=== PATIENT | female | born 1955 | race Hispanic/Latino ===

== ENCOUNTER 2016-06-12 01:40 | Emergency (ER) | payer OTHER ==
[~2016-06-12] VITALS: Ht 152.4 cm; Wt 97.5 kg
[~2016-06-12 01:40] MED LIST: ADULT LOW DOSE81 MG PO; ADVAIR 500-501 EACH INH; ADVAIR DISKUS1 UNIT INH; ALBUTEROL SULFAT3 M1 INH; ALBUTEROL1.25 MG/1 NEB; ALBUTEROL1.25 MG/3 INH; AMOX-CLAV 875-1 EACH PO; AMOXIL 875 MG875 MG PO; ARISTOCORT OINT15 GM TOP; ASPIRIN EC81 M1 PO; AUGMENTIN 875875 MG PO; AZITHROMYCIN250 M1 PO; AZITHROMYCIN500 MG PO; BENICAR40 M1 PO; BENTYL20 MG PO; BYSTOLIC5 M1 PO; CLOBETASOL PROP TOP; CLONAZEPAM0.5 M2 PO; CLONAZEPAM0.5 MG PO; ESCITALOPRAM OX10 MG PO; ESCITALOPRAM10 MG PO; FENOFIBRIC ACI135 MG PO; FIORICET 325 MG1 TAB PO; FLEXERIL10 MG PO; GABAPENTIN100 MG PO; GUAIFENESIN-COD10 ML PO; HYDRALAZINE HCL10 M1 PO; LANTUS SOL100 UNIT/1 SC; LANTUS SOLOS100 U/ML SC; LEVEMIR100 U/ML SC; LEVOTHYROXIN0.075 M1 PO; LEVOXYL75 MCG PO; LOSARTAN POTAS100 M1 PO; LOSARTAN POTAS100 MG PO; LOSARTAN POTASS50 MG PO; METFORMIN ER500 MG PO; MONTELUKAST SOD10 M1 PO; MONTELUKAST SOD10 MG PO; NEURONTIN100 M1 PO; NEURONTIN100 MG PO; NORVASC 5MG TAB5 MG PO; NORVASC10 M1 PO; NORVASC5 M1 PO; NOVOLOG 10300 UNITS/ SC; NOVOLOG100 U/ML SC; NOVOLOG100 UNIT/2 SC; NYSTATIN100000 U/2 TOP; PERCOCET 325 MG1 TA2 PO; PERCOCET 325 MG1 TA3 PO; PERCOCET 5-3251 EACH PO; PERCOCET 7.5-31 EACH PO; PREDNISONE 10MG10 M1 PO; PREDNISONE 20MG20 MG PO; PROAIR HFA0.09 MG/Ac INH; PROAIR HFA8.5 GM INH; PROVENTIL HFA6.7 GM INH; RISPERIDONE1 M1 PO; RISPERIDONE1 MG PO; SPIRIVA18 MCG INH; TESSALON PERLE100 MG PO; TRAMADOL HCL50 MG PO; TRAZODONE HCL50 M1; TRAZODONE HCL50 MG PO; TRAZODONE50 MG PO; VIBRAMYCIN 100100 MG PO; VICODIN10-300 PO; VITAMIN D250000 UNIT PO; VITAMIN D50000 IU PO; ZITHROMAX250 MG PO; ZOCOR20 M1 PO; ZOCOR20 MG PO; ZOFRAN ODT4 M1 SL; ZOFRAN ODT4 MG PO; ZOFRAN ODT4 MG SL
--- NOTE | 2016-06-12 01:57 | ED GENERAL ADULT ---
History of Present Illness General Chief Complaint: General Adult Stated Complaint: "PER HIGH BP 198/95, RT KNEE PAIN" Source: patient, old records, Exam Limitations: no limitations Vital Signs & Intake/Output Vital Signs & Intake/Output Vital Signs Date Time Temp Pulse Resp B/P Pulse O2 O2 Flow FiO2 Ox Delivery Rate 06/12 528 96.8 61 18 137/72 95 Room Air / 0421 96.6 71 18 179/87 95 Room Air 06/12 0339 96.6 72 18 185/88 06/12 0330 96.6 68 18 185/88 / 0330 96.6 72 18 224/112 / 0325 185/88 / 0312 72 18 224/112 97 Room Air 06/12 0309 96.6 71 18 224/112 97 Room Air 06/12 0151 97.8 122 20 229/98 94 Room Air Allergies Coded Allergies: pineapple (Intermediate, ITCHY THROAT 11/25/15) ibuprofen (Mild, GI UPSET 11/25/15) Reconcile Medications Albuterol Sulfate (Proair Hfa) 8.5 GM HFA.AER.AD 2 PUF INH PRN ASTHMA ( Reported) Albuterol Sulfate 1.25 MG/3 ML VIAL.NEB 1 Vial NEB Q4 PRN WHEEZING (Reported) Albuterol Sulfate (Proventil Hfa) 90 MCG HFA.AER.AD 2 PUF INH Q4 BRONCHITIS Amlodipine Besylate (Norvasc) 10 MG TABLET 1 TAB PO DAILY HIGH BLOOD PRESSURE Aspirin (Adult Low Dose Aspirin EC) 81 MG TABLET.DR 1 TAB PO DAILY HEART HEALTH (Reported) Aspirin (Ecotrin*) 81 MG TABLET.DR 1 TAB PO DAILY CARDIAC (Reported) Azithromycin 250 MG TABLET 1 DP PO AD bronchitis 2 the first day followed by 1 for days 2-5 Clonazepam 0.5 MG TABLET 3 TAB PO QHS ANXIETY (Reported) Clonazepam 0.5 MG TABLET 1 TAB PO QAM ANXIETY (Reported) Ergocalciferol (Vitamin D2) (Vitamin D2) 50,000 UNIT CAPSULE 1 CAP PO QMON SUPPLEMENT (Reported) Escitalopram Oxalate (Unknown Strength) TABLET 10 MG PO DAILY ANXIETY ( Reported) Fluticasone/Salmeterol (Advair 500-50 Diskus) 1 EACH BLST.W.DEV 1 PUF INH BID ASTHMA (Reported) Gabapentin (Neurontin) 100 MG CAPSULE 1 CAP PO DAILY PAIN (Reported) Hydralazine HCl 10 MG TABLET 1 TAB PO BID htn Insulin Aspart (Novolog) 100 UNIT/1 ML VIAL DIABETES (Reported) Insulin Glargine,Hum.rec.anlog (Lantus Solostar) 100 UNIT/1 ML INSULN.PEN 18 UNIT SC BID DIABETES (Reported) Levothyroxine Sodium (Levoxyl) 75 MCG TABLET 1 TAB PO DAILY THYROID (Reported ) Losartan Potassium 100 MG TABLET 1 TAB PO DAILY HYPERTENSION (Reported) Montelukast Sodium 10 MG TABLET 1 TAB PO QPM ASTHMA (Reported) Nebivolol HCl (Bystolic) 5 MG TABLET 1 TAB PO DAILY BP (Reported) Olmesartan Medoxomil (Benicar) 40 MG TABLET 1 TAB PO DAILY BP (Reported) Ondansetron (Zofran Odt) 4 MG TAB.RAPDIS 1 TAB SL TID PRN nausea Oxycodone HCl/Acetaminophen (Percocet 7.5-325 MG Tablet) 1 EACH TABLET 1 TAB PO Q6H PAIN (Reported) Oxycodone HCl/Acetaminophen (Percocet 5-325 MG Tablet) 1 EACH TABLET 1 TAB PO TID PRN HEADACHE Risperidone 1 MG TABLET 1 TAB PO QPM SLEEP (Reported) Robitussin AC (Guaifenesin-Codeine Syrup) 200 MG-20 MG/10 ML LIQUID 5-10 ML PO Q6P PRN COUGH Simvastatin (Zocor*) 20 MG TABLET 1 TAB PO DAILY CHOLESTEROL (Reported) Tiotropium Mcalister (Spiriva) 18 MCG CAP.W.DEV 1 CAP INH DAILY ASTHMA ( Reported) Tiotropium Mcalister (Spiriva) 18 MCG CAP.W.DEV 1 CAP INH DAILY PULM. (Reported ) Trazodone HCl (Unknown Strength) TABLET (Unknown Dose) UNKNOWN (Reported) Triage Note: PRESENTS TO ED FOR EVALUATION OF HER BP. SHE REPORTS TO HAVE BEEN NOTICING HER BP INCREASING IN THE PAST WEEK. SHE ALSO REPORTS HEADACHES AND CHEST DISCOMFORT THAT BEGAN THIS EVENING. REPORTS NAUSEA, NO VOMITING. Triage Nurses Notes Reviewed? yes HPI: Patient presents for evaluation of chest pain headache and nausea that began today. Patient states that her blood pressure has been running high for about a week now. She saw her direct casting operator last week and was apparently no issues at that time and no adjustments to blood pressure medications. Currently the patient is describing a burning substernal chest pain as a 7 out of 10 in intensity. In addition to the above the patient is also complaining of right knee pain and has had to have her knee tapped in the past. Past History Travel History Traveled to [place] past 21 day No Medical History Any Pertinent Medical History? 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 No Review of Systems Review of Systems Constitutional: Reports: no symptoms. EENTM: Reports: no symptoms. Respiratory: Reports: no symptoms. Cardiovascular: Reports: chest pain. GI: Reports: no symptoms. Genitourinary: Reports: no symptoms. Musculoskeletal: Reports: joint pain. Skin: Reports: no symptoms. Neurological/Psychological: Reports: headache. Hematologic/Endocrine: Reports: no symptoms. Immunologic/Allergic: Reports: no symptoms. All Other Systems: Reviewed and Negative Physical Exam Physical Exam General Appearance: see below Comments: Gen.: Well-nourished, well-developed, no acute respiratory distress. Overweight. Head: Normocephalic, atraumatic. Eyes: Normal inspection bilaterally, PERRLA, EOMI Ears: Normal inspection bilaterally Nose: Normal inspection Throat/mouth : Moist mucosa Neck: Supple, full range of motion, no goiter Heart: Regular rate and rhythm, no murmurs rubs or gallops Lungs: Clear to auscultation bilaterally with normal air entry Chest: Nontender Back: Normal range of motion Abdomen: Soft, nontender, nondistended, normal bowel sounds Extremities: Decreased range of motion of the right knee secondary to an effusion, equal radial pulses, no cyanosis clubbing or edema Neurologic: Cranial nerves grossly intact, speech is clear Skin: warm and dry Psychiatric: Calm, cooperative, no apparent delusions or hallucinations Core Measures ACS in differential dx? No CVA/TIA Diagnosis: No Severe Sepsis Present: No Septic Shock Present: No Progress Differential Diagnoses I considered the following diagnoses in my evaluation of the patient: NC, angina , aortic dissection/aneurysm, dyspepsia, acid reflux, endorgan damage Plan of Care: Orders Procedure Date/time Status TROPONIN LEVEL 06/12 552 Complete EKG 06/12 552 Active Telemetry/Hotel Service Supervisor 06/13 155 Active TROPONIN LEVEL 06/13 155 Complete CBC WITHOUT DIFFERENTIAL 06/13 155 Complete BASIC METABOLIC PANEL 06/13 155 Complete EKG 06/12 154 Active Laboratory Tests 06/12/16 0602: Troponin I < 0.01 06/12/16 0207: Anion Gap 8, Estimated GFR > 60, BUN/Creatinine Ratio 25.6 H, Glucose 379 H, Calcium 9.1, Troponin I < 0.01, CBC w Diff NO MAN DIFF REQ, RBC 4.45, MCV 90.9, MCH 29.8, RDW 14.1, MPV 7.6, Gran % 74.2, Lymphocytes % 17.8 L, Monocytes % 5.8 , Eosinophils % 1.6, Basophils % 0.6, Absolute Granulocytes 11.5 H, Absolute Lymphocytes 2.8, Absolute Monocytes 0.9 H, Absolute Eosinophils 0.2, Absolute Basophils 0.1, PUBS MCHC 32.7 L Diagnostic Imaging: Discussed w/RAD: CT Scan. Radiology Impression: PATIENT: AFTAB STEIN I PRESENT AGE: 61 PATIENT ACCOUNT NO: [id number] : 56 LOCATION: [facility] ORDERING PHYSICIAN: HANNAH RIVAS MD SERVICE DATE: 06/12/16 EXAM TYPE: CAT - CTA CHEST-AORTIC DISSECTION EXAMINATION: CT ANGIOGRAM CHEST, aortic study CLINICAL INFORMATION: Chest pain. Burning. Severe hypertension COMPARISON: Chest x-ray 06/12/2016 TECHNIQUE: Noncontrast CT was performed through the chest. This was followed by the administration of 95 mL Optiray [address] of the chest was then performed. Coronal and sagittal reformatted images were performed at CT scanner. No post processing 3-D images. DLP: 1235.32 mGy-cm. FINDINGS: VASCULAR: There is no aortic dissection or aneurysm. There is of normal caliber without vascular wall calcifications. There is a normal three- vessel aortic arch. Pulmonary arteries are well-opacified with no evidence of pulmonary embolism of the central pulmonary vessels. MEDIASTINUM: No mediastinal mass. No significant lymphadenopathy. There is no pericardial effusion. LUNGS: Emphysematous lucency of lungs. No acute infiltrate. Central bronchial airways are open. No bronchiectasis. FLUID: There is no pericardial effusion. There is no pleural effusion. AXILLA: No significant lymphadenopathy. UPPER ABDOMEN: Adrenal glands normal. Visualized portions of liver and spleen unremarkable. SKELETAL: Multilevel degenerative disc disease of the spine disc height narrowing and endplate spurs of the vertebrae. IMPRESSION: 1. No acute abnormality. Normal CT of the aorta. 2. Emphysematous changes of lungs. DICTATED BY: GALA RODRIGUES MD DATE/TIME DICTATED:06/12/16409 CIVIL ENGINEERING ASSISTANT:BROWNING DATE/TIME TRANSCRIBED:06/12/16409 CONFIDENTIAL, DO NOT COPY WITHOUT APPROPRIATE AUTHORIZATION. <Electronically signed in Other Vendor System> SIGNED BY: GALA RODRIGUES MD 06/12/16419, PATIENT: AFTAB STEIN I PRESENT AGE: 61 PATIENT ACCOUNT NO: [id number] : 56 LOCATION: [facility] ORDERING PHYSICIAN: HANNAH RIVAS MD SERVICE DATE: 06/12/16 EXAM TYPE: CAT - CT HEAD WO IV CONTRAST EXAMINATION: CT HEAD WITHOUT CONTRAST CLINICAL INFORMATION: High blood pressure. Headache. COMPARISON: CT head 2013 TECHNIQUE: Contiguous axial imaging was performed from the skull base to vertex without intravenous administration of contrast. DLP: 600.71 mGy-cm FINDINGS: There is no evidence of acute intracranial hemorrhage or territorial infarction. No abnormal mass effect or midline shift is seen. Roy to white matter differentiation is well preserved. No extra-axial fluid collections are identified. There is atrophy with prominence of the ventricles and the sulci and hypodensity of the periventricular white matter due to chronic small vessel ischemic disease. . The osseous structures and soft tissues are normal. The mastoid air cells and visualized portions of the paranasal sinuses are well aerated. IMPRESSION: No acute intracranial pathology. DICTATED BY: GALA RODRIGUES MD DATE/TIME DICTATED:06/12/16313 CIVIL ENGINEERING ASSISTANT:RAD.BROWNING DATE/TIME TRANSCRIBED:06/12/16313 CONFIDENTIAL, DO NOT COPY WITHOUT APPROPRIATE AUTHORIZATION. <Electronically signed in Other Vendor System> SIGNED BY: GALA RODRIGUES MD 06/12/16319 CXR Impression: PATIENT: AFTAB STEIN I PRESENT AGE: 61 PATIENT ACCOUNT NO: [id number] : 56 LOCATION: [facility] ORDERING PHYSICIAN: HANNAH RIVAS MD SERVICE DATE: 06/12/16 EXAM TYPE: RAD - XRY-CHEST XRAY, PA AND LATERAL EXAMINATION: XR CHEST CLINICAL INFORMATION: Chest pain. COMPARISON: Chest x-ray 02/10/2016 TECHNIQUE: 2 views of the chest were obtained. FINDINGS: Lungs are clear. No pulmonary vascular congestion. No infiltrate or pleural effusion. The heart size is mildly enlarged. The cardiac and mediastinal contours are normal. There are multilevel degenerative changes of dorsal spine. IMPRESSION: No acute abnormality the chest. DICTATED BY: GALA RODRIGUES MD DATE/TIME DICTATED:06/12/16315 CIVIL ENGINEERING ASSISTANT:CLEO DATE/ TIME TRANSCRIBED:06/12/16315 CONFIDENTIAL, DO NOT COPY WITHOUT APPROPRIATE AUTHORIZATION. <Electronically signed in Other Vendor System> SIGNED BY: GALA RODRIGUES MD 06/12/16321 Initial ED EKG: NSR, rate (75), nonspecific ST T wave chg Prior EKG: unchanged Comments: 06/12/2016 4:24:18 AM patient continues to complain of chest pain and headache pain despite an improvement in her blood pressure. I have reviewed the patient' s prior emergency department visit vital signs and she often runs a very high blood pressure. Fortunately there are no diagnostic EKG changes, signs of congestive heart failure or hypertensive bleed and CTA of the chest reveals no aortic disease. Morphine ordered for pain. 06/12/2016 6:28:02 AM patient is now pain-free and appears comfortable. Patient's repeat EKG shows flattening of the T waves in the lateral leads but interestingly a return of the patient's T wave in aVL. Patient's case discussed with Dr. Serenity Kellogg covering for Dr. Rose who feels that so long as the patient does not elevated troponin level on repeat testing, the EKG changes are nonspecific. Departure Departure Disposition: HOME OR SELF CARE Condition: Stable Clinical Impression Primary Impression: Hypertension Qualifiers: Hypertension type: essential hypertension Qualified Code: I10 - Essential (primary) hypertension Secondary Impressions: Headache Qualifiers: Headache type: unspecified Headache chronicity pattern: acute headache Intractability: not intractable Qualified Code: R51 - Headache Right knee pain Qualifiers: Chronicity: acute Qualified Code: M25.561 - Pain in right knee Referrals: BARBARA PEOPLES APRN (PCP/Family) Additional Instructions: Continue your current blood pressure medications. Follow-up with Dr. Rose tomorrow for reevaluation of your blood pressure and adjustment of your blood pressure medications. Avoid caffeine and salt. Notify your primary care doctor of this emergency department visit and treatment plan. Return if any concerns or sudden worsening. Departure Forms: Customer Survey General Discharge Information Critical Care Note Critical Care Note Critical Care Time: 30-74 min
[2016-06-12 02:12] LABS: ABSOLUTE BASOPHIL COUNT 0.1 /CUMM (0.0-0.2); ABSOLUTE EOSINOPHIL COUNT 0.2 /CUMM (0.0-0.7); ABSOLUTE GRANULOCYTE CT 11.5 /CUMM (1.4-6.5); ABSOLUTE LYMPH COUNT 2.8 /CUMM (1.2-3.4); ABSOLUTE MONOCYTE COUNT 0.9 /CUMM (0.10-0.60); BASOPHIL % 0.6 % (0.0-2.0); EOSINOPHIL % 1.6 % (0-5); GRANULOCYTE % 74.2 % (42.2-75.2); HEMATOCRIT 40.4 % (37-47); MEAN CORPUSCULAR HGB 29.8 PG (27.0-31.0); MEAN CORPUSCULAR HGB CONC 32.7 G/DL (33.0-37.0); MEAN CORPUSCULAR VOLUME 90.9 FL (81.0-99.0); MEAN PLATELET VOLUME 7.6 FL (7.4-10.4); PLATELET COUNT 360 /CUMM (130-400); RBC DISTRIBUTION WIDTH 14.1 % (11.5-14.5); RED BLOOD CELL CT 4.45 /CUMM (4.20-5.40); WHITE BLOOD CELL COUNT 15.5 /CUMM (4.8-10.8)
--- NOTE | 2016-06-12 03:20 | CT SCAN REPORT ---
EXAMINATION: CT HEAD WITHOUT CONTRAST CLINICAL INFORMATION: High blood pressure. Headache. COMPARISON: CT head 04/13/2013 TECHNIQUE: Contiguous axial imaging was performed from the skull base to vertex without intravenous administration of contrast. DLP: 600.71 mGy-cm FINDINGS: There is no evidence of acute intracranial hemorrhage or territorial infarction. No abnormal mass effect or midline shift is seen. Roy to white matter differentiation is well preserved. No extra-axial fluid collections are identified. There is atrophy with prominence of the ventricles and the sulci and hypodensity of the periventricular white matter due to chronic small vessel ischemic disease. . The osseous structures and soft tissues are normal. The mastoid air cells and visualized portions of the paranasal sinuses are well aerated. IMPRESSION: No acute intracranial pathology.
--- NOTE | 2016-06-12 03:22 | RADIOLOGY REPORT ---
EXAMINATION: XR CHEST CLINICAL INFORMATION: Chest pain. COMPARISON: Chest x-ray 02/10/2016 TECHNIQUE: 2 views of the chest were obtained. FINDINGS: Lungs are clear. No pulmonary vascular congestion. No infiltrate or pleural effusion. The heart size is mildly enlarged. The cardiac and mediastinal contours are normal. There are multilevel degenerative changes of dorsal spine. IMPRESSION: No acute abnormality the chest.
--- NOTE | 2016-06-12 04:20 | CT SCAN REPORT ---
EXAMINATION: CT ANGIOGRAM CHEST, aortic study CLINICAL INFORMATION: Chest pain. Burning. Severe hypertension COMPARISON: Chest x-ray 06/12/2016 TECHNIQUE: Noncontrast CT was performed through the chest. This was followed by the administration of 95 mL Optiray [address] of the chest was then performed. Coronal and sagittal reformatted images were performed at CT scanner. No post processing 3-D images. DLP: 1235.32 mGy-cm. FINDINGS: VASCULAR: There is no aortic dissection or aneurysm. There is of normal caliber without vascular wall calcifications. There is a normal three-vessel aortic arch. Pulmonary arteries are well-opacified with no evidence of pulmonary embolism of the central pulmonary vessels. MEDIASTINUM: No mediastinal mass. No significant lymphadenopathy. There is no pericardial effusion. LUNGS: Emphysematous lucency of lungs. No acute infiltrate. Central bronchial airways are open. No bronchiectasis. FLUID: There is no pericardial effusion. There is no pleural effusion. AXILLA: No significant lymphadenopathy. UPPER ABDOMEN: Adrenal glands normal. Visualized portions of liver and spleen unremarkable. SKELETAL: Multilevel degenerative disc disease of the spine disc height narrowing and endplate spurs of the vertebrae. IMPRESSION: 1. No acute abnormality. Normal CT of the aorta. 2. Emphysematous changes of lungs.
[2016-06-12 07:11] VITALS: BP 147/80
[2016-06-12] MEDS ORDERED: NORCO 5-325 TA1 EACH PO (07:16)
== END 2016-06-12 07:18 ==
LOC: ERH 01:40
PROVIDERS: Emergency Medicine
DX: I10 Essential (primary) hypertension (principal); R51 Headache; M25.561 Pain in right knee
CPT/HCPCS: 93005; 93010; 96374; 96375; 99291

== ENCOUNTER 2016-09-06 02:06 | Emergency (ER) | payer OTHER ==
[~2016-09-06] VITALS: Ht 152.4 cm; Wt 91.2 kg
[~2016-09-06 02:06] MED LIST changes: +NORCO 5-325 TA1 EACH PO
--- NOTE | 2016-09-06 03:36 | ED GENERAL ADULT ---
History of Present Illness General Chief Complaint: General Adult Stated Complaint: PER C/O HEPERTENSION Source: patient, family, old records Exam Limitations: no limitations Vital Signs & Intake/Output Vital Signs & Intake/Output Vital Signs Date Time Temp Pulse Resp B/P B/P Pulse O2 O2 Flow FiO2 Mean Ox Delivery Rate 09/06 0758 98.5 75 20 149/90 97 Room Air 09/06 0551 97.0 80 20 164/102 09/06 0523 97.0 80 20 164/102 98 Room Air 09/06 0421 96 Room Air 09/06 0402 97.1 87 20 204/110 09/06 0341 204/110 09/06 0312 97.1 87 20 185/93 95 Room Air Allergies Coded Allergies: pineapple (Intermediate, ITCHY THROAT 11/25/15) ibuprofen (Mild, GI UPSET 11/25/15) Reconcile Medications Albuterol Sulfate (Proair Hfa) 8.5 GM HFA.AER.AD 2 PUF INH PRN ASTHMA ( Reported) Albuterol Sulfate 1.25 MG/3 ML VIAL.NEB 1 Vial NEB Q4 PRN WHEEZING (Reported) Albuterol Sulfate (Proventil Hfa) 90 MCG HFA.AER.AD 2 PUF INH Q4 BRONCHITIS Amlodipine Besylate (Norvasc) 10 MG TABLET 1 TAB PO DAILY HIGH BLOOD PRESSURE Aspirin (Adult Low Dose Aspirin EC) 81 MG TABLET. 1 TAB PO DAILY HEART HEALTH (Reported) Aspirin (Ecotrin*) 81 MG TABLET.DR 1 TAB PO DAILY CARDIAC (Reported) Azithromycin 250 MG TABLET 1 DP PO AD bronchitis 2 the first day followed by 1 for days 2-5 Clonazepam 0.5 MG TABLET 3 TAB PO QHS ANXIETY (Reported) Clonazepam 0.5 MG TABLET 1 TAB PO QAM ANXIETY (Reported) Ergocalciferol (Vitamin D2) (Vitamin D2) 50,000 UNIT CAPSULE 1 CAP PO QMON SUPPLEMENT (Reported) Escitalopram Oxalate (Unknown Strength) TABLET 10 MG PO DAILY ANXIETY ( Reported) Fluticasone/Salmeterol (Advair 500-50 Diskus) 1 EACH BLST.W.DEV 1 PUF INH BID ASTHMA (Reported) Gabapentin (Neurontin) 100 MG CAPSULE 1 CAP PO DAILY PAIN (Reported) Hydralazine HCl 10 MG TABLET 1 TAB PO BID htn Hydrocodone/Acetaminophen ([place] 5-325 Tablet) 5 MG-325 MG TABLET 1-2 TAB PO Q6P PRN PAIN Insulin Aspart (Novolog) 100 UNIT/1 ML VIAL DIABETES (Reported) Insulin Glargine,Hum.rec.anlog (Lantus Solostar) 100 UNIT/1 ML INSULN.PEN 18 UNIT SC BID DIABETES (Reported) Levothyroxine Sodium (Levoxyl) 75 MCG TABLET 1 TAB PO DAILY THYROID (Reported ) Losartan Potassium 100 MG TABLET 1 TAB PO DAILY HYPERTENSION (Reported) Montelukast Sodium 10 MG TABLET 1 TAB PO QPM ASTHMA (Reported) Nebivolol HCl (Bystolic) 5 MG TABLET 1 TAB PO DAILY BP (Reported) Olmesartan Medoxomil (Benicar) 40 MG TABLET 1 TAB PO DAILY BP (Reported) Ondansetron (Zofran Odt) 4 MG TAB.RAPDIS 1 TAB SL TID PRN nausea Oxycodone HCl/Acetaminophen (Percocet 7.5-325 MG Tablet) 1 EACH TABLET 1 TAB PO Q6H PAIN (Reported) Oxycodone HCl/Acetaminophen (Percocet 5-325 MG Tablet) 1 EACH TABLET 1 TAB PO TID PRN HEADACHE Risperidone 1 MG TABLET 1 TAB PO QPM SLEEP (Reported) Robitussin AC (Guaifenesin-Codeine Syrup) 200 MG-20 MG/10 ML LIQUID 5-10 ML PO Q6P PRN COUGH Simvastatin (Zocor*) 20 MG TABLET 1 TAB PO DAILY CHOLESTEROL (Reported) Tiotropium [place] (Spiriva) 18 MCG CAP.W.DEV 1 CAP INH DAILY ASTHMA ( Reported) Tiotropium [place] (Spiriva) 18 MCG CAP.W.DEV 1 CAP INH DAILY PULM. (Reported ) Trazodone HCl (Unknown Strength) TABLET (Unknown Dose) UNKNOWN (Reported) Triage Note: pt to ed for elevated bp at home 197/92. pt c/o chest pain. evaluated by dr chin Triage Nurses Notes Reviewed? yes Onset: Abrupt Duration: hour(s): (FEW) Timing: recent history Injury Environment: home Severity: mild, moderate No Modifying Factors: none HPI: This is a 61-year-old female with history of hypertension who presents with her for chief complaint of elevated blood pressure at home this evening. She also reports headache, blurred vision, chest pain, abdominal pain, back pain. She is on clonidine, olmesartan and Coreg for her blood pressure. He reports she is compliant with her medications. (HELEN CHIN MD) Past History Travel History Traveled to [place] past 21 day No Medical History Any Pertinent Medical History? 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 No (HELEN CHIN MD) Review of Systems Review of Systems Constitutional: Denies: chills, fever. EENTM: Reports: blurred vision. Respiratory: Reports: cough, short of breath, sputum production. Cardiovascular: Reports: chest pain. GI: Reports: abdominal pain. Genitourinary: Reports: no symptoms. Musculoskeletal: Reports: back pain. Skin: Reports: no symptoms. Neurological/Psychological: Reports: headache. Hematologic/Endocrine: Denies: bruising, bleeding, polyuria, polydipsia. Immunologic/Allergic: Reports: no symptoms. All Other Systems: Reviewed and Negative (HELEN CHIN MD) Physical Exam Physical Exam General Appearance: well developed/nourished, alert, awake, anxious, mild distress, moderate distress, obese Head: atraumatic, normal appearance Eyes: Bilateral: normal appearance, PERRL, EOMI. Ears, Nose, Throat: normal pharynx, normal ENT inspection, abnormal Tympanic (R) Neck: normal inspection, supple, full range of motion Respiratory: normal breath sounds, chest non-tender, no respiratory distress Cardiovascular: regular rate/rhythm Peripheral Pulses: 2+ radial (R), 2+ radial (L) Gastrointestinal: normal bowel sounds, soft, non-tender Back: normal inspection, normal range of motion Neurologic/Psych: no motor/sensory deficits, awake, alert, oriented x 3 Skin: intact, normal color, warm/dry Core Measures ACS in differential dx? Yes CVA/TIA Diagnosis: No Severe Sepsis Present: No Septic Shock Present: No (SHERIF PULIDO,HELEN) Progress Differential Diagnoses I considered the following diagnoses in my evaluation of the patient: [AMI, UNSTABLE ANGINA, PNEUMONIA, PTX, PLEURAL EFFUSION, ANXIETY] Plan of Care: Orders Procedure Date/time Status Heart Healthy Diet 09/06 L Active TROPONIN LEVEL 09/06 0730 Complete EKG 09/06 0730 Active URINALYSIS 09/06 0346 Complete TROPONIN LEVEL 09/06 0335 Complete COMPREHENSIVE METABOLIC PANEL 09/06 0335 Complete CBC WITHOUT DIFFERENTIAL 09/06 334 Complete EKG 09/06 033 Active Laboratory Tests 09/06/16 0748: Troponin I < 0.01 09/06/16 0435: Urinalysis LIGHT H, Urine Color YEL, Urine Clarity HAZY H, Urine pH 6.0, Ur Specific [place] 1.015, Urine Protein 30 H, Urine Ketones NEG, Urine Nitrite NEG, Urine Bilirubin NEG, Urine Urobilinogen 0.2, Ur Leukocyte Esterase NEG, Ur Microscopic SEDIMENT EXAMINED, Urine RBC 3-5, Urine WBC 3-5 H, Ur Epithelial Cells FEW, Urine Bacteria RARE H, Urine Mucus FEW, Urine Hemoglobin TRACE- INTACT, Urine Glucose >=1000 H 09/06/16 0405: Anion Gap 14, Estimated GFR > 60, BUN/Creatinine Ratio 28.3 H, Glucose 315 H, Calcium 10.2, Total Bilirubin 0.4, AST 24, ALT 32, Alkaline Phosphatase 98, Troponin I < 0.01, Total Protein 8.1, Albumin 4.6, Globulin 3.5, Albumin/ Globulin Ratio 1.3, CBC w Diff NO MAN DIFF REQ, RBC 4.70, MCV 91.6, MCH 29.3, RDW 14.4, MPV 8.6, Gran % 82.7 H, Lymphocytes % 15.7 L, Monocytes % 1.0 L, Eosinophils % 0, Basophils % 0.6, Absolute Granulocytes 12.2 H, Absolute Lymphocytes 2.3, Absolute Monocytes 0.1 L, Absolute Eosinophils 0, Absolute Basophils 0.1, PUBS MCHC 32.0 L Diagnostic Imaging: Viewed by Me: Radiology Read. Discussed w/RAD: Radiology Read. CXR Impression: PATIENT: AFTAB STEIN I PRESENT AGE: 61 PATIENT ACCOUNT NO: [id number] : 56 LOCATION: [facility] ORDERING PHYSICIAN: HELEN CHIN MD SERVICE DATE: 09/06/16 EXAM TYPE: RAD - XRY-CHEST XRAY , PA AND LATERAL EXAMINATION: XR CHEST CLINICAL INFORMATION: Chest pain. Cough and shortness of breath. COMPARISON: CT angiogram of the chest 06/12/2016. TECHNIQUE: 2 views of the chest were obtained. FINDINGS: There are ill-defined reticular markings within the lung bases that most likely represent a manifestation of subsegmental atelectasis. There is mild hilar vascular engorgement without evidence of overt interstitial or alveolar edema. The cardiac silhouette is prominent but unchanged from prior imaging. Upper mediastinal contours are normal. No acute osseous finding. IMPRESSION: There is mild hilar vascular engorgement without evidence of overt interstitial or alveolar edema. Linear markings within the lung bases most likely represent a manifestation of subsegmental atelectasis. DICTATED BY: DONIS LILLY MD DATE/TIME DICTATED:09/06/16457 GROUT MACHINE OPERATOR:CLEO DATE/TIME TRANSCRIBED:09/06/16457 CONFIDENTIAL, DO NOT COPY WITHOUT APPROPRIATE AUTHORIZATION. <Electronically signed in Other Vendor System> SIGNED BY: DONIS LILLY MD 09/06/16 0504 Initial ED EKG: none Hand-Off Endorsed To: ELODIA MCCLURE MD Endorsed Time: 0700 Pending: EKG, labs (TROPONIN), other (BP CHECK) (HELEN CHIN MD) Comments: Repeat EKG and troponin unchanged. BP improved. (ELODIA MCCLURE MD) Departure Departure Condition: Stable Clinical Impression Primary Impression: Hypertensive urgency Referrals: BARBARA PEOPLES APRN (PCP/Family) Departure Forms: Customer Survey General Discharge Information (HELEN CHIN MD) Departure Time of Disposition: 830 Disposition: HOME OR SELF CARE (ELODIA MCCLURE MD) Critical Care Note Critical Care Note Critical Care Time: non-applicable (HELEN CHIN MD)
[2016-09-06 04:20] LABS: ABSOLUTE BASOPHIL COUNT 0.1 /CUMM (0.0-0.2); ABSOLUTE EOSINOPHIL COUNT 0 /CUMM (0.0-0.7); ABSOLUTE GRANULOCYTE CT 12.2 /CUMM (1.4-6.5); ABSOLUTE LYMPH COUNT 2.3 /CUMM (1.2-3.4); ABSOLUTE MONOCYTE COUNT 0.1 /CUMM (0.10-0.60); BASOPHIL % 0.6 % (0.0-2.0); EOSINOPHIL % 0 % (0-5); GRANULOCYTE % 82.7 % (42.2-75.2); MEAN CORPUSCULAR HGB 29.3 PG (27.0-31.0); MEAN CORPUSCULAR VOLUME 91.6 FL (81.0-99.0); MEAN PLATELET VOLUME 8.6 FL (7.4-10.4); PLATELET COUNT 406 /CUMM (130-400); RBC DISTRIBUTION WIDTH 14.4 % (11.5-14.5); WHITE BLOOD CELL COUNT 14.8 /CUMM (4.8-10.8)
--- NOTE | 2016-09-06 05:04 | RADIOLOGY REPORT ---
EXAMINATION: XR CHEST CLINICAL INFORMATION: Chest pain. Cough and shortness of breath. COMPARISON: CT angiogram of the chest 06/12/2016. TECHNIQUE: 2 views of the chest were obtained. FINDINGS: There are ill-defined reticular markings within the lung bases that most likely represent a manifestation of subsegmental atelectasis. There is mild hilar vascular engorgement without evidence of overt interstitial or alveolar edema. The cardiac silhouette is prominent but unchanged from prior imaging. Upper mediastinal contours are normal. No acute osseous finding. IMPRESSION: There is mild hilar vascular engorgement without evidence of overt interstitial or alveolar edema. Linear markings within the lung bases most likely represent a manifestation of subsegmental atelectasis.
[2016-09-06 07:58] VITALS: BP 149/90
== END 2016-09-06 08:40 ==
LOC: ERH 02:06
PROVIDERS: Emergency Medicine
DX: I10 Essential (primary) hypertension (principal)
CPT/HCPCS: 81001; 93005; 93010

== ENCOUNTER 2017-07-06 08:35 | Emergency (ER) | payer OTHER ==
[~2017-07-06] VITALS: Ht 152.4 cm; Wt 84.4 kg
[~2017-07-06 08:35] MED LIST changes: +BACTRIM DS TAB1 EACH PO; +LIDODERM1 EACH TOP
--- NOTE | 2017-07-06 09:14 | ED HEADACHE COMPLAINT ---
See Addendum History of Present Illness General Chief Complaint: Headache Stated Complaint: HEADACHE Source: patient, family Exam Limitations: no limitations Vital Signs & Intake/Output Vital Signs & Intake/Output Vital Signs Date Time Temp Pulse Resp B/P B/P Pulse O2 O2 Flow FiO2 Mean Ox Delivery Rate 07/06 1053 97.6 78 18 138/80 99 Room Air 07/06 0838 96.8 86 18 141/88 97 Room Air Room Air Allergies Coded Allergies: pineapple (Intermediate, ITCHY THROAT 11/25/15) ibuprofen (Mild, GI UPSET 11/25/15) Reconcile Medications Albuterol Sulfate (Proair Hfa) 8.5 GM HFA.AER.AD 2 PUF INH PRN ASTHMA ( Reported) Albuterol Sulfate 1.25 MG/3 ML VIAL.NEB 1 Vial NEB Q4 PRN WHEEZING (Reported) Amlodipine Besylate (Norvasc) 10 MG TABLET 1 TAB PO DAILY HIGH BLOOD PRESSURE Aspirin (Ecotrin*) 81 MG TABLET.DR 1 TAB PO DAILY CARDIAC (Reported) Clonazepam 0.5 MG TABLET 3 TAB PO QHS ANXIETY (Reported) Clonazepam 0.5 MG TABLET 1 TAB PO QAM ANXIETY (Reported) Ergocalciferol (Vitamin D2) (Vitamin D2) 50,000 UNIT CAPSULE 1 CAP PO QMON SUPPLEMENT (Reported) Escitalopram Oxalate 10 MG TABLET 1 TAB PO DAILY ANXIETY (Reported) Fluticasone/Salmeterol (Advair 500-50 Diskus) 1 EACH BLST.W.DEV 1 PUF INH BID ASTHMA (Reported) Gabapentin (Neurontin) 100 MG CAPSULE 1 CAP PO DAILY PAIN (Reported) Hydralazine HCl 10 MG TABLET 1 TAB PO BID htn Insulin Aspart (Novolog) 100 UNIT/1 ML VIAL DIABETES (Reported) Insulin Glargine,Hum.rec.anlog (Lantus Solostar) 100 UNIT/ML (3 ML) INSULN.PEN 16 UNIT SC DAILY DIABETES (Reported) Insulin Glargine,Hum.rec.anlog (Lantus Solostar) 100 UNIT/ML (3 ML) INSULN.PEN 22 UNIT SC QPM DIABETES (Reported) Levothyroxine Sodium (Levoxyl) 75 MCG TABLET 1 TAB PO DAILY AC THYROID ( Reported) Lidocaine (Lidoderm) 5 % ADH..PATCH 1 PAT TOP DAILY PRN PAIN may wear up to 12 hours Losartan Potassium 100 MG TABLET 1 TAB PO DAILY HYPERTENSION (Reported) Montelukast Sodium 10 MG TABLET 1 TAB PO QPM ASTHMA (Reported) Nebivolol HCl (Bystolic) 5 MG TABLET 1 TAB PO DAILY BP (Reported) Olmesartan Medoxomil (Benicar) 40 MG TABLET 1 TAB PO DAILY BP (Reported) Ondansetron (Zofran Odt) 4 MG TAB.RAPDIS 1 TAB SL TID PRN nausea Oxycodone HCl/Acetaminophen (Percocet 5-325 MG Tablet) 1 EACH TABLET 1 TAB PO TID PRN HEADACHE Prednisone (Deltasone) 20 MG TABLET 3 TAB PO DAILY TEMPORAL ARTERITIS BEGIN TOMORROW Simvastatin (Zocor*) 20 MG TABLET 1 TAB PO DAILY CHOLESTEROL (Reported) Tiotropium [place] (Spiriva) 18 MCG CAP.W.DEV 1 CAP INH DAILY PULM. (Reported ) Triage Note: PT TO ED WITH C/O HEADACHE FOR A FEW DAYS, ALSO C/O HTN, TAKING BP MEDS BUT NOT WORKING 200'S/90'S PER FAMILY. 141/88, 76 IN TRIAGE. Triage Nurses Notes Reviewed? yes HPI: Patient presents for evaluation of high blood pressure chest pain and headache. Patient states that her blood pressure has been running high over the past few days particularly at night. She has been compliant with her blood pressure medications having taken and even this morning. Her chest pain is described as a hot burning sensation in the upper sternum that is more or less constant but worsens with breathing. There is no change with position. Patient has had prior episodes like this but no specific diagnosis made. In regards to the patient's headache it is an "all over" pressure feeling that has been constant since onset. Patient denies any associated neck stiffness. She has not tried any [id number] pain relievers for this. Past History Travel History Traveled to [place] past 21 day No Medical History Any Pertinent Medical History? 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 No Review of Systems Review of Systems Constitutional: Reports: no symptoms. Eyes: Reports: no symptoms. Ears, Nose, Throat, Mouth: Reports: no symptoms. Respiratory: Reports: no symptoms. Cardiovascular: Reports: see HPI. Gastrointestinal/Abdominal: Reports: no symptoms. Genitourinary: Reports: no symptoms. Musculoskeletal: Reports: no symptoms. Skin: Reports: no symptoms. Neurological/Psychological: Reports: headache. Hematologic/Endocrine: Reports: no symptoms. Endocrine: Reports: no symptoms. Immunologic/Allergic: Reports: no symptoms. All Other Systems: Reviewed and Negative Physical Exam Physical Exam Cranial Nerves: SEE BELOW Core Measures Sepsis Present: No Sepsis Focused Exam Completed? No Progress Differential Diagnosis: UNCONTROLLED HYPERTENSION, HYPERTENSIVE HEADACHE, cva, INTRACRANIAL MASS, dka, HONK, ARTERITIS Plan of Care: Orders Procedure Date/time Status TROPONIN LEVEL 07/06 930 Complete MAGNESIUM 07/06 930 Complete HIGH SENSITIVITY CRP 07/06 930 Complete WESTERGREN SED RATE 07/06 0831 Active COMPREHENSIVE METABOLIC PANEL 07/06 0831 Complete CBC WITHOUT DIFFERENTIAL 07/06 930 Active Current Medications Sig/Bradley Start time Last Medication Dose Stop Time Status Admin Acetaminophen 1,000 MG ONCE ONE 07/06 0930 CAN (Ofirmev) 07/06 0944 N/A 1 UNIT (No Carrier) Laboratory Tests 07/06/17 0948: Anion Gap 11, Estimated GFR > 60, BUN/Creatinine Ratio 28.0 H, Glucose 175 H, Calcium 9.3, Magnesium 1.5 L, Total Bilirubin 0.5, AST 17, ALT 21, Alkaline Phosphatase 125, Troponin I < 0.01, C-React Prot High Sens 13.7 H, Total Protein 7.4, Albumin 4.0, Globulin 3.4, Albumin/Globulin Ratio 1.2, CBC w Diff NO MAN DIFF REQ, RBC 4.39, MCV 90.3, MCH 30.4, MCHC 33.7, RDW 14.6 H, MPV 7.8, Gran % 71.7, Lymphocytes % 19.1 L, Monocytes % 6.2, Eosinophils % 2.5, Basophils % 0.5, Absolute Granulocytes 9.8 H, Absolute Lymphocytes 2.6, Absolute Monocytes 0.8 H, Absolute Eosinophils 0.3, Absolute Basophils 0.1, ESR Roseann Pending Comments: 07/06/2017 11:04:04 AM I have updated Sade and her on test results including the elevated CRP and his possible implications for temporal arteritis. I plan on treating her with prednisone and have asked that she follow up with her primary care physician to confirm the diagnosis. I have advised them of the increase in her blood sugar levels while taking prednisone. Departure Departure Disposition: HOME OR SELF CARE Condition: Stable Clinical Impression Primary Impression: Temporal arteritis Secondary Impressions: Hypertension Qualifiers: Hypertension type: essential hypertension Qualified Code: I10 - Essential (primary) hypertension Referrals: Alyson West APRN (PCP/Family) Additional Instructions: Prednisone as prescribed. Continue your current medications and monitor your sugar levels before each meal and at bedtime. Follow-up with your primary care doctor for further evaluation of possible temporal arteritis and to review your blood sugar levels for possible adjustments to your diabetic medications while taking prednisone. Strict diabetic diet. Return if any concerns or sudden worsening. Please note that there might be incidental findings in your evaluation that are unrelated to the current emergency department visit. Please notify your primary care doctor about this emergency department visit in order to obtain and review all of the testing performed so that these incidental findings can be monitored as needed. If you had an x-ray performed, please understand that some fractures may not be seen on the initial set of x-rays. If your symptoms persist you might need a repeat set of x-rays to check for such a fracture. If you had a laceration evaluated, please understand that foreign bodies such as glass or wood may not be visible to the naked eye or on plain x-rays. If the wound becomes red, swollen, increasingly more painful or if there is any drainage from the wound, please have it reevaluated by a physician for the possibility of a retained foreign body. If you're unable to follow up as outlined in the discharge instructions please return to the emergency department. Thank you for choosing the [facility] Emergency Department for your care. It was a pleasure to serve you today. Jon Neumann M.D. [facility] Departure Forms: Customer Survey General Discharge Information Prescriptions: Current Visit Scripts Prednisone (Deltasone) 3 TAB PO DAILY #21 TAB BEGIN TOMORROW
--- NOTE | 2017-07-06 09:56 | RADIOLOGY REPORT ---
EXAMINATION: XR CHEST CLINICAL INFORMATION: Chest pain. COMPARISON: 06/15/2017 TECHNIQUE: 2 views of the chest were obtained. FINDINGS: Cardiac and mediastinal silhouette is stable. Stable mild elevation left hemidiaphragm. No evidence of pleural effusion. No focal consolidation, pulmonary edema or pneumothorax is seen. Degenerative changes in the spine. IMPRESSION: No acute pulmonary disease.
[2017-07-06 09:59] LABS: ABSOLUTE BASOPHIL COUNT 0.1 /CUMM (0.0-0.2); ABSOLUTE EOSINOPHIL COUNT 0.3 /CUMM (0.0-0.7); ABSOLUTE GRANULOCYTE CT 9.8 /CUMM (1.4-6.5); ABSOLUTE LYMPH COUNT 2.6 /CUMM (1.2-3.4); ABSOLUTE MONOCYTE COUNT 0.8 /CUMM (0.10-0.60); BASOPHIL % 0.5 % (0.0-2.0); EOSINOPHIL % 2.5 % (0-5); GRANULOCYTE % 71.7 % (42.2-75.2); HEMATOCRIT 39.6 % (37-47); MEAN CORPUSCULAR HGB 30.4 PG (27.0-31.0); MEAN CORPUSCULAR HGB CONC 33.7 G/DL (33.0-37.0); MEAN CORPUSCULAR VOLUME 90.3 FL (81.0-99.0); MEAN PLATELET VOLUME 7.8 FL (7.4-10.4); PLATELET COUNT 342 /CUMM (130-400); RBC DISTRIBUTION WIDTH 14.6 % (11.5-14.5); RED BLOOD CELL CT 4.39 /CUMM (4.20-5.40); WHITE BLOOD CELL COUNT 13.6 /CUMM (4.8-10.8)
[2017-07-06 10:53] VITALS: BP 138/80
[2017-07-06] MEDS ORDERED: DELTASONE20 MG PO (11:09)
== END 2017-07-06 11:25 ==
LOC: ERH 08:35
PROVIDERS: Emergency Medicine
DX: M31.6 Other giant cell arteritis (principal); I10 Essential (primary) hypertension; R07.89 Other chest pain
CPT/HCPCS: 71046

== ENCOUNTER 2017-07-19 02:49 | Emergency (ER) | payer OTHER ==
[~2017-07-19] VITALS: Ht 152.4 cm; Wt 86.2 kg
[~2017-07-19 02:49] MED LIST changes: +DELTASONE20 MG PO
--- NOTE | 2017-07-19 03:48 | ED GENERAL ADULT ---
See Addendum History of Present Illness General Chief Complaint: General Adult Stated Complaint: "HX HIGH BP, AT HOME BP 220/114,FACIAL NUMBNESS" Source: patient, family, old records Exam Limitations: no limitations Vital Signs & Intake/Output Vital Signs & Intake/Output Vital Signs Date Time Temp Pulse Resp B/P B/P Pulse O2 O2 Flow FiO2 Mean Ox Delivery Rate 07/19 0547 174/64 07/19 0614 187/90 07/19 0423 97 Room Air Room Air 07/19 0412 195/98 07/19 0303 98.0 77 20 195/98 95 Room Air Allergies Coded Allergies: pineapple (Intermediate, ITCHY THROAT 11/25/15) ibuprofen (Mild, GI UPSET 11/25/15) Reconcile Medications Albuterol Sulfate (Proair Hfa) 8.5 GM HFA.AER.AD 2 PUF INH PRN ASTHMA ( Reported) Albuterol Sulfate 1.25 MG/3 ML VIAL.NEB 1 Vial NEB Q4 PRN WHEEZING (Reported) Amlodipine Besylate (Norvasc) 10 MG TABLET 1 TAB PO DAILY HIGH BLOOD PRESSURE Aspirin (Ecotrin*) 81 MG TABLET.DR 1 TAB PO DAILY CARDIAC (Reported) Clonazepam 0.5 MG TABLET 3 TAB PO QHS ANXIETY (Reported) Clonazepam 0.5 MG TABLET 1 TAB PO QAM ANXIETY (Reported) Ergocalciferol (Vitamin D2) (Vitamin D2) 50,000 UNIT CAPSULE 1 CAP PO QMON SUPPLEMENT (Reported) Escitalopram Oxalate 10 MG TABLET 1 TAB PO DAILY ANXIETY (Reported) Fluticasone/Salmeterol (Advair 500-50 Diskus) 1 EACH BLST.W.DEV 1 PUF INH BID ASTHMA (Reported) Gabapentin (Neurontin) 100 MG CAPSULE 1 CAP PO DAILY PAIN (Reported) Hydralazine HCl 10 MG TABLET 1 TAB PO BID htn Hydrochlorothiazide 12.5 MG CAPSULE 1 CAP PO DAILY BLOOD PRESSURE Insulin Aspart (Novolog) 100 UNIT/1 ML VIAL DIABETES (Reported) Insulin Glargine,Hum.rec.anlog (Lantus Solostar) 100 UNIT/ML (3 ML) INSULN.PEN 16 UNIT SC DAILY DIABETES (Reported) Insulin Glargine,Hum.rec.anlog (Lantus Solostar) 100 UNIT/ML (3 ML) INSULN.PEN 22 UNIT SC QPM DIABETES (Reported) Levothyroxine Sodium (Levoxyl) 75 MCG TABLET 1 TAB PO DAILY AC THYROID ( Reported) Lidocaine (Lidoderm) 5 % ADH..PATCH 1 PAT TOP DAILY PRN PAIN may wear up to 12 hours Losartan Potassium 100 MG TABLET 1 TAB PO DAILY HYPERTENSION (Reported) Montelukast Sodium 10 MG TABLET 1 TAB PO QPM ASTHMA (Reported) Nebivolol HCl (Bystolic) 5 MG TABLET 1 TAB PO DAILY BP (Reported) Olmesartan Medoxomil (Benicar) 40 MG TABLET 1 TAB PO DAILY BP (Reported) Ondansetron (Zofran Odt) 4 MG TAB.RAPDIS 1 TAB SL TID PRN nausea Oxycodone HCl/Acetaminophen (Percocet 5-325 MG Tablet) 1 EACH TABLET 1 TAB PO TID PRN HEADACHE Prednisone (Deltasone) 20 MG TABLET 3 TAB PO DAILY TEMPORAL ARTERITIS BEGIN TOMORROW Prednisone 10 MG TABLET 5 TAB PO DAILY INFLAMMATION BEGIN TOMORROW Simvastatin (Zocor*) 20 MG TABLET 1 TAB PO DAILY CHOLESTEROL (Reported) Tiotropium [place] (Spiriva) 18 MCG CAP.W.DEV 1 CAP INH DAILY PULM. (Reported ) Triage Note: 62YO ARMENIAN SPEAKING FEMALE TO TRIAGE W/ TRANSLATING STATING "HER BP IS HIGH TONITE W/ALEGRIA" STATES "SHE TOOK BP MED THIS EVENING AND AT 0000" Triage Nurses Notes Reviewed? yes HPI: Patient presents for evaluation of a high blood pressure taken at home at 216/ 104 this evening. Patient is also complaining of a substernal chest pain, diffuse headache, left facial numbness, dizziness and abdominal pain. The patient was seen recently for high blood pressure in the emergency department and saw her primary care physician's nurse practitioner little over a week ago. 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 She had just completed a course of prednisone for the possibility of temporal arteritis and has a referral to one of the general surgeons for temporal artery biopsy. Past History Travel History Traveled to [place] past 21 day No Medical History Any Pertinent Medical History? 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 No Review of Systems Review of Systems Constitutional: Reports: no symptoms. EENTM: Reports: no symptoms. Respiratory: Reports: no symptoms. Cardiovascular: Reports: chest pain. GI: Reports: no symptoms. Genitourinary: Reports: no symptoms. Musculoskeletal: Reports: no symptoms. Skin: Reports: no symptoms. Neurological/Psychological: Reports: headache, numbness. Hematologic/Endocrine: Reports: no symptoms. Immunologic/Allergic: Reports: no symptoms. All Other Systems: Reviewed and Negative Physical Exam Physical Exam General Appearance: SEE BELOW Comments: Gen.: Well-nourished, well-developed, no acute respiratory distress. Head: Normocephalic, atraumatic. Eyes: Normal inspection bilaterally, PERRLA, EOMI, fundi normal bilaterally Ears: Normal inspection bilaterally Nose: Normal inspection Throat/mouth : Moist mucosa Neck: Supple, full range of motion, no goiter Heart: Regular rate and rhythm, no murmurs rubs or gallops Lungs: Clear to auscultation bilaterally with normal air entry Chest: Nontender Back: Normal range of motion Abdomen: Soft, diffuse tenderness without rebound or guarding, nondistended, normal bowel sounds Extremities: Normal range of motion grossly, equal radial pulses, no cyanosis clubbing or edema Neurologic: Cranial nerves grossly intact, speech is clear Skin: warm and dry Psychiatric: Calm, cooperative, no apparent delusions or hallucinations Core Measures ACS in differential dx? No CVA/TIA Diagnosis: No Sepsis Present: No Sepsis Focused Exam Completed? No Progress Differential Diagnoses I considered the following diagnoses in my evaluation of the patient: Plan of Care: Orders Procedure Date/time Status Vital Signs 07/20 523 Active TSH REFLEX 07/19 345 Complete TROPONIN LEVEL 07/19 345 Complete LIPASE 07/19 345 Complete HIGH SENSITIVITY CRP 07/19 345 Complete WESTERGREN SED RATE 07/19 345 Complete COMPREHENSIVE METABOLIC PANEL 07/19 345 Complete CBC WITHOUT DIFFERENTIAL 07/19 345 Complete EKG 07/19 345 Active Laboratory Tests 07/19/17 0410: Anion Gap 13, Estimated GFR > 60, BUN/Creatinine Ratio 42.5 H, Glucose 248 H, Calcium 9.6, Total Bilirubin 0.6, AST 20, ALT 26, Alkaline Phosphatase 135 H, Troponin I < 0.01, C-React Prot High Sens 7.2 H, Total Protein 7.7, Albumin 4.4 , Globulin 3.3, Albumin/Globulin Ratio 1.3, Lipase 12 L, TSH &T3 &Free T4 Intrp 0.281, CBC w Diff MAN DIFF ORDERED, RBC 4.94, MCV 91.2, MCH 29.2, MCHC 32.0 L, RDW 14.2, MPV 8.1, Gran % 90.2 H, Lymphocytes % 8.7 L, Monocytes % 0.7 L, Eosinophils % 0.3, Basophils % 0.1, Absolute Granulocytes 14.4 H, Segmented Neutrophils 91 H, Absolute Lymphocytes 1.4, Lymphocytes 7 L, Monocytes 2, Absolute Monocytes 0.1, Absolute Eosinophils 0.1, Absolute Basophils 0, Platelet Estimate ADEQUATE, Polychromasia 1+, Hypochromic-Microcytic 1+, Ovalocytes FEW, ESR Westergren 20, Fld Total RBCs Counted 100 Diagnostic Imaging: Discussed w/RAD: Radiology Read, CT Scan. Radiology Impression: PATIENT: AFTAB STEIN I PRESENT AGE: 62 PATIENT ACCOUNT NO: [id number] : 56 LOCATION: [facility] ORDERING PHYSICIAN: Jon Neumann MD SERVICE DATE: 07/19/17 EXAM TYPE: CAT - CT HEAD WO IV CONTRAST EXAMINATION: CT HEAD WITHOUT CONTRAST CLINICAL INFORMATION: Headache. Hypertension. COMPARISON: 06/12/2016 TECHNIQUE: Contiguous axial imaging was performed from the skull base to vertex without intravenous contrast. DLP: 552 mGy-cm. FINDINGS: There is no evidence of acute intracranial hemorrhage or territorial infarction. No abnormal mass effect or midline shift is seen. Roy to white matter differentiation is well preserved. No extra-axial fluid collections are identified. No hydrocephalus. Proportional prominence of the ventricles and sulcal spaces is consistent with mild volume loss. Patchy periventricular and deep white matter hypoattenuation is consistent with moderate small vessel ischemic changes. The osseous structures and soft tissues are normal. The mastoid air cells and visualized portions of the paranasal sinuses are well aerated. IMPRESSION: No acute intracranial pathology. Mild volume loss with moderate small vessel ischemic changes. DICTATED BY: Coleman Randhawa MD DATE/TIME DICTATED:07/19/17411 NEWS ANCHOR: CLEO DATE/TIME TRANSCRIBED:07/19/17411 CONFIDENTIAL, DO NOT COPY WITHOUT APPROPRIATE AUTHORIZATION. <Electronically signed in Other Vendor System> SIGNED BY: Coleman Randhawa MD 07/19/17416 CXR Impression: no acute abnormality Initial ED EKG: NSR, rate (74), LVH (WITH REPOLARIZATION CHANGES) Prior EKG: unchanged Comments: 07/19/2017 6:07:39 AM I have updated Aftab regarding on her test results. Her headache is only slightly improved, her blood pressure has improved but it is still high. I will order acetaminophen for the headache and additional bail off of blood pressure. In addition I plan on continuing the prednisone until she has a chance see Josias Rubi MD for a temporal artery biopsy. 07/19/2017 7:08:48 AM Paola is beginning to feel much better and her blood pressure has continued to improve. Departure Departure Disposition: HOME OR SELF CARE Condition: Stable Clinical Impression Primary Impression: Hypertensive urgency Referrals: Alyson West APRN (PCP/Family) Additional Instructions: prednisone as prescribed until you see Josias Rubi MD in follow-up for the possibility of temporal arteritis. Consider taking an extra dose of the by Bistolic and clonidine in the morning to help with your blood pressure. Monitor your blood sugar levels before each meal and at bedtime and record these for review by your primary care physician. Please follow-up with your primary care physician within 48 hours for reevaluation of your blood pressure and blood sugar. Return if any concerns or sudden worsening. Please note that there might be incidental findings in your evaluation that are unrelated to the current emergency department visit. Please notify your primary care doctor about this emergency department visit in order to obtain and review all of the testing performed so that these incidental findings can be monitored as needed. If you had an x-ray performed, please understand that some fractures may not be seen on the initial set of x-rays. If your symptoms persist you might need a repeat set of x-rays to check for such a fracture. If you had a laceration evaluated, please understand that foreign bodies such as glass or wood may not be visible to the naked eye or on plain x-rays. If the wound becomes red, swollen, increasingly more painful or if there is any drainage from the wound, please have it reevaluated by a physician for the possibility of a retained foreign body. If you're unable to follow up as outlined in the discharge instructions please return to the emergency department. Thank you for choosing the [facility] Emergency Department for your care. It was a pleasure to serve you today. Jon Neumann M.D. [facility] Departure Forms: Customer Survey General Discharge Information Prescriptions: Current Visit Scripts Prednisone 5 TAB PO DAILY #35 TAB BEGIN TOMORROW Hydrochlorothiazide 1 CAP PO DAILY #30 CAP Critical Care Note Critical Care Note Critical Care Time: non-applicable
--- NOTE | 2017-07-19 04:17 | CT SCAN REPORT ---
EXAMINATION: CT HEAD WITHOUT CONTRAST CLINICAL INFORMATION: Headache. Hypertension. COMPARISON: 06/12/2016 TECHNIQUE: Contiguous axial imaging was performed from the skull base to vertex without intravenous contrast. DLP: 552 mGy-cm. FINDINGS: There is no evidence of acute intracranial hemorrhage or territorial infarction. No abnormal mass effect or midline shift is seen. Roy to white matter differentiation is well preserved. No extra-axial fluid collections are identified. No hydrocephalus. Proportional prominence of the ventricles and sulcal spaces is consistent with mild volume loss. Patchy periventricular and deep white matter hypoattenuation is consistent with moderate small vessel ischemic changes. The osseous structures and soft tissues are normal. The mastoid air cells and visualized portions of the paranasal sinuses are well aerated. IMPRESSION: No acute intracranial pathology. Mild volume loss with moderate small vessel ischemic changes.
[2017-07-19 04:33] LABS: ABSOLUTE BASOPHIL COUNT 0 /CUMM (0.0-0.2); ABSOLUTE EOSINOPHIL COUNT 0.1 /CUMM (0.0-0.7); ABSOLUTE GRANULOCYTE CT 14.4 /CUMM (1.4-6.5); ABSOLUTE LYMPH COUNT 1.4 /CUMM (1.2-3.4); ABSOLUTE MONOCYTE COUNT 0.1 /CUMM (0.10-0.60); BASOPHIL % 0.1 % (0.0-2.0); EOSINOPHIL % 0.3 % (0-5); GRANULOCYTE % 90.2 % (42.2-75.2); HEMATOCRIT 45.1 % (37-47); MEAN CORPUSCULAR HGB 29.2 PG (27.0-31.0); MEAN CORPUSCULAR VOLUME 91.2 FL (81.0-99.0); MEAN PLATELET VOLUME 8.1 FL (7.4-10.4); PLATELET COUNT 412 /CUMM (130-400); RBC DISTRIBUTION WIDTH 14.2 % (11.5-14.5); RED BLOOD CELL CT 4.94 /CUMM (4.20-5.40)
--- NOTE | 2017-07-19 05:03 | RADIOLOGY REPORT ---
EXAMINATION: XR PORTABLE CHEST CLINICAL INFORMATION: Chest pain. Hypertension. COMPARISON: 07/05/2017 TECHNIQUE: Portable frontal view of the chest was obtained. FINDINGS: The lungs are well expanded. There is no focal consolidation, edema, or effusion. No pneumothorax. The cardiomediastinal silhouette is mildly prominent with a tortuous aorta.. No acute osseous abnormality. IMPRESSION: No acute pulmonary findings.
[2017-07-19] MEDS ORDERED: PREDNISONE10 M2 PO (06:11)
[2017-07-19] MEDS ORDERED: HYDROCHLOROTH12.5 M3 PO (06:12)
[2017-07-19 06:47] VITALS: BP 174/64
== END 2017-07-19 07:19 ==
LOC: ERH 02:49
PROVIDERS: Emergency Medicine
DX: I10 Essential (primary) hypertension (principal); R07.89 Other chest pain
CPT/HCPCS: 71045; 93005; 93010; 96374; 96375; 96376; J0131; J7512